=== PATIENT | male | born 1960 | race Two or more races ===

== ENCOUNTER 2024-11-02 15:17 | Inpatient (IN) | payer MEDICAID, OTHER ==
[~2024-11-02] VITALS: Ht 182.9 cm; Wt 92.8 kg
--- NOTE | 2024-11-02 15:33 | ED.PDOC ---
HPI Comments This is a 64 year old male STEPHANIEA presenting to the ED with chief complaint of generalized weakness. EMS reports that the patient had missed a week of dialysis and barely went in today to be dialyzed. EMS relays that the patient had dialysis for about an hour before starting to experience symptoms of generalized weakness, prompting staff to call 911. EMS states patient had a BP on scene of 230/94. Patient notes that he is supposed to go to dialysis M//, but is only going Tuesday and Tuesday. Patient reports that he has also been experiencing some associated diarrhea. Patient denies any dizziness, chest pain, SOB, N/V, abdominal pain, or headache. Chief Complaint: High Blood Pressure Time Seen by MD: 15:30 Reviewed Notes: Nurses Notes, Arcade Game Technician Notes, Medications, Allergies Allergies: Coded Allergies: Gabapentin (Verified Allergy, Unknown, 11/02/24) Information Source: Patient, Emergency Med Personnel Mode of Arrival: EMS Severity: Moderate Timing: Hours Duration: Since onset Prehospital treatment: None Cardiac Risk Factors: HTN, Diabetes Past Medical History PAST MEDICAL HISTORY: CVA, DM, ESRD, HTN Surgical History: Denies all surgeries Family History Family History: Reviewed,noncontributory to illness Social History Smoker: Non-Smoker Alcohol: Denies ETOH Use Drugs: Denies Drug Use Lives In: Home Constitutional: reports: fatigue, weakness; denies: chills, diaphoresis, fever, malaise, sweats, others EENTM: denies: blurred vision, double vision, ear bleeding, ear discharge, ear drainage, ear pain, ear ringing, eye pain, eye redness, hearing loss, mouth pain, mouth swelling, nasal discharge, nose bleeding, nose congestion, nose pain, photophobia, tearing, throat pain, throat swelling, voice changes, others Respiratory: denies: cough, hemoptysis, orthopnea, SOB at rest, shortness of breath, SOB with excertion, stridor, wheezing, others Cardiovascular: denies: chest pain, dizzy spells, diaphoresis, Dyspnea on exertion, edema, irregular heart beat, left arm pain, lightheadedness, palpitations, PND, syncope, others Gastrointestinal: reports: diarrhea; denies: abdomen distended, abdominal pain, blood streaked bowels, constipated, dysphagia, difficulty swallowing, hematemesis, melena, nausea, poor appetite, poor fluid intake, rectal bleeding, rectal pain, vomiting, others Genitourinary: denies: burning, dysuria, flank pain, frequency, hematuria, incontinence, penile discharge, penile sore, pain, testicle pain, testicle swelling, urgency, others Neurological: denies: dizziness, fainting, headache, left sided numbness, left sided weakness, numbness, paresthesia, pre-existing deficit, right sided nu mbness, right sided weakness, seizure, speech problems, tingling, tremors, weakness, others Musculoskeletal: denies: back pain, gout, joint pain, joint swelling, muscle pain, muscle stiffness, neck pain, others Integumetry: denies: bruises, change in color, change in hair/nails, dryness, laceration, lesions, lumps, rash, wounds, others Allergic/Immunocompromised: denies: Difficulty Healing, Frequent Infections, Hives, Itching, others Hematologic/Lymphatic: denies: anemia, blood clots, easy bleeding, easy bruising, swollen glands, others Endocrine: denies: excessive hunger, excessive sweating, excessive thirst, excessive urination, flushing, intolerance to cold, intolerance to heat, unexplained weight gain, unexplained weight loss, others Psychiatric: denies: anxiety, bipolar disorder, depression, hopeless, panic disorder, schizophrenia, sleepless, suicidal, others All Other Systems: Reviewed and Negative Physical Exam General Appearance: Moderate Distress, Normal HEENT: Normal ENT Inspection, Pharynx Normal, TMs Normal Neck: Full Range of Motion, Non-Tender, Normal, Normal Inspection Respiratory: Chest Non-Tender, Lungs Clear, No Accessory Muscle Use, No Respiratory Distress, Normal Breath Sounds Cardiovascular: Bradycardia, No Edema, No JVD, No Murmur, No Gallop, Normal Peripheral Pulses Breast Exam: Deferred Gastrointestinal: No Organomegaly, Non Tender, No Pulsatile Mass, Normal Bowel Sounds, Soft Genitalia: Deferred Pelvic: Deferred Rectal: Deferred Extremities: No calf tenderness, Normal capillary refill, Normal inspection, Normal range of motion, Non-tender, No pedal edema Musculoskeletal : Apperance: Normal Neurologic: Alert, finisher fine diamond dies II-XII nml as Tested, No Motor Deficits, Normal Affect, Normal Mood, No Sensory Deficits Cerebellar Function: NOT DONE Reflexes: NOT DONE Skin: Dry, Normal Color, Warm Peripheral Pulses: 3+ Radial (R), 3+ Radial (L) Lymphatic: No Adenopathy EKG EKG : Pulse Rate (adult): 43 [place]: Normal Cardiac Rhythm: SB Was a procedure done? Was a procedure done?: No CP Differential Dx Differential Diagnosis: A-fib, A-Flutter, Angina, Anxiety / Panic Attack, Atrial Dysrhythmia, Electrolyte Disorder X-Ray, Labs, Meds, VS Vital Signs Date Time Temp Pulse Resp B/P (MAP) Pulse Ox O2 Delivery O2 Flow Rate FiO2 11/02/24 16:31 97 Room Air* 0 21 11/02/24 16:23 47 16 97 Room Air* 0 21 11/02/24 16:21 98.3 48 16 155/56 (89) 97 98.3 11/02/24 15:50 197/73 11/02/24 15:33 43 11/02/24 15:23 98.3 43 16 227/88 98 98.3 11/02/24 15:22 43 Lab Test 11/02/24 16:35 11/02/24 15:38 Range/Units Troponin I High Sensitivity 53 57 *H </=54 ng/L White Blood Count 9.8 4.4-10.8 10^3/uL Red Blood Count 3.69 L 4.5-5.90 10^6/uL Hemoglobin 12.2 L 13.5-17.5 g/dL Hematocrit 36.4 L 41.0-53.0 % Mean Corpuscular Volume 98.7 80.0-100.0 fL Mean Corpuscular Hemoglobin 33.1 H 28.0-32.0 pg Mean Corpuscular Hemoglobin Concent 33.5 32.0-36.0 g/dL Red Cell Distribution Width 15.1 H 11.8-14.3 % Platelet Count 150 140-450 10^3/uL Mean Platelet Volume 11.5 H 6.9-10.8 fL Neutrophils (%) (Auto) 69.0 37.0-80.0 % Lymphocytes (%) (Auto) 21.5 10.0-50.0 % Monocytes (%) (Auto) 8.2 0.0-12.0 % Eosinophils (%) (Auto) 0.8 0.0-7.0 % Basophils (%) (Auto) 0.5 0.0-2.0 % Neutrophils # (Auto) 6.8 1.6-8.6 10 ^3/uL Lymphocytes # (Auto) 2.1 0.4-5.4 10 ^3/uL Monocytes # (Auto) 0.8 0-1.3 10 ^3/uL Eosinophils # (Auto) 0.1 0-0.8 10 ^3/uL Basophils # (Auto) 0 0-0.2 10 ^3/uL Nucleated Red Blood Cells 0.1 % Sodium Level 139 136-145 mmol/L Potassium Level 5.1 3.5-5.1 mmol/L Chloride Level 105 98-107 mmol/L Carbon Dioxide Level 21 20-31 mmol/L Anion Gap 13 5-15 Blood Urea Nitrogen 88 *H 9-23 mg/dL Creatinine 7.43 H 0.700-1.30 mg/dL Glomerular Filtration Rate Calc 8 >90 mL/min BUN/Creatinine Ratio 11.8 10.0-20.0 Serum Glucose 204 H 74-106 mg/dL Calcium Level 7.5 L 8.7-10.4 mg/dL Total Bilirubin 0.5 0.2-1.0 mg/dL Aspartate Amino Transferase (AST) 28 13-40 U/L Alanine Aminotransferase (ALT) 35 7-40 U/L Alkaline Phosphatase 94 46-116 U/L Total Protein 6.2 5.7-8.2 g/dL Albumin 3.5 3.2-4.8 g/dL Current Medications Medications (Trade) Dose Ordered Sig/Katarzyna Route Start Time Stop Time Status Last Admin Calcium Gluconate/ Sodium Chloride 50 ml @ 120 mls/hr ONCE ONCE IV 11/02/24 15:30 11/02/24 15:54 DC 11/02/24 15:50 Hydralazine HCl (Apresoline Injection) 10 mg ONCE ONCE IV 11/02/24 15:45 11/02/24 15:46 DC 11/02/24 15:50 Piperacillin Sod/ Tazobactam Sod 100 ml @ 100 mls/hr ONCE ONCE IV 11/02/24 16:45 11/02/24 17:44 DC 11/02/24 16:49 Azithromycin 250 ml @ 125 mls/hr ONCE ONCE IV 11/02/24 16:45 11/02/24 18:44 11/02/24 16:49 [facility] [id number] [place] [id number] Ph: [phone] DIAGNOSTIC IMAGING Diagnostic Imaging Report : [id number] Signed PATIENT: LUIS FELIPE MYRICK ACCT: [id number] UNIT: [id number] : 1960 LOC: ER ROOM / BED: / AGE / SEX: 64 / M ADM STATUS: REG ER SERVICE 1529 ORDERING PHYSICIAN: MERI PETTY MD PROCEDURE(s): CXRP - CHEST PORTABLE REASON: sob ORDER NUMBER(s): [id number], ACCESSION NUMBER(s): [id number] CHEST RADIOGRAPH Indication: sob Technique: XY CHEST PORTABLE COMPARISON: None FINDINGS: Right IJ catheter tip projects over the SVC. The cardiac silhouette is enlarged. The lungs demonstrate bilateral patchy airspace opacities. The pulmonary vasculature is prominent. Small bilateral pleural effusions. There is no pneumothorax. IMPRESSION: Cardiomegaly with pulmonary vascular congestion and bilateral patchy airspace opacities. Small bilateral pleural effusions. ATED BY: MAIK HERNANDEZ MD DICTATED DATE/TIME: 11/02/24 1602 SIGNED BY: MAIK HERNANDEZ MD SIGNED DATE/TIME: 11/02/24 1602 CC: Patient alert. Feeling weak. Has not had dialysis for a week. He is perspiring. He did go to dialysis center today for which they did dialyzed 500 mL. EKG does show prolonged QT interval. Chest x-ray reviewed does show congestion with possible pneumonia. Establish intravenous access. Was given Zosyn. Was given azithromycin. Blood pressure elevated. Was given hydralazine. Explained to the patient. Continue monitoring. Time of 1ST Reevaluation: 16:29 Reevaluation 1ST: Unchanged Patient Education/Counseling: Diagnosis, Treatment Family Education/Counseling: No Family Present SEPSIS Sepsis Screen Physician Orders Chest Portable (11/02/24 15:29) Urinalysis (11/02/24 15:29) Troponin-I Hs (11/02/24 18:29) Electrocardigram (11/02/24 15:33) * Cardiology Consult (11/02/24 16:36) Azithromycin 500mg/ 250ml (Zithromax 50 (11/02/24 16:45) Vital Signs Date Time Temp Pulse Resp B/P (MAP) Pulse Ox O2 Delivery O2 Flow Rate FiO2 11/02/24 16:31 97 Room Air* 0 21 11/02/24 16:23 47 16 97 Room Air* 0 21 11/02/24 16:21 98.3 48 16 155/56 (89) 97 98.3 11/02/24 15:50 197/73 11/02/24 15:33 43 11/02/24 15:23 98.3 43 16 227/88 98 98.3 11/02/24 15:22 43 Laboratory Tests Test 11/02/24 15:38 White Blood Count 9.8 10^3/uL (4.4-10.8) Medications Medications Dose Ordered Sig/Katarzyna Route Start Time Stop Time Status Last Admin Dose Admin Azithromycin 250 ml @ 125 mls/hr ONCE ONCE IV 11/02/24 16:45 11/02/24 18:44 11/02/24 16:49 Calcium Gluconate/ Sodium Chloride 50 ml @ 120 mls/hr ONCE ONCE IV 11/02/24 15:30 11/02/24 15:54 DC 11/02/24 15:50 Hydralazine HCl 10 mg ONCE ONCE IV 11/02/24 15:45 11/02/24 15:46 DC 11/02/24 15:50 Piperacillin Sod/ Tazobactam Sod 100 ml @ 100 mls/hr ONCE ONCE IV 11/02/24 16:45 11/02/24 17:44 DC 11/02/24 16:49 Departure 1 Departure Time of Disposition: 15:40 Impression: Primary Impression: Hypertensive emergency Additional Impressions: Chronic kidney disease on chronic dialysis Pneumonia Qualified Codes: J18.9 - Pneumonia, unspecified organism Disposition: 09 ADMITTED INPATIENT Admit to: Med Surg Condition: Guarded Critical Care Note Critical Care Time?: Yes (90 min-critical care time only) Stability Stability form required: No Heart Score Heart Score: Heart Score Response (Comments) Value History Highly Suspicious 2 EKG Repolarization Disturb 1 Age 45-64 1 Risk Factors >3 or Hx ASHD 2 Troponin Normal limit 0 Total 6 I personally scribed for MERI PETTY MD ([email or web address]) on 11/02/24 at 15:33. Electronically submitted by Geronimo Shearer ([email or web address]). I personally scribed for MERI PETTY MD ([email or web address]) on 11/02/24 at 16:07. Electronically submitted by Geronimo Shearer ([email or web address]). MERI PETTY MD Nov 02, 2024 15:33
[2024-11-02] MEDS: hydrALAZINE HCL 20 MG/ML VL IV ONE (15:50)
[2024-11-02] MEDS: CALCIUM GLUC 1,000mg/50ml-NS 50 ML IV ONE (15:50)
[2024-11-02 16:01] LABS: Hematocrit 36.4 % (41.0-53.0); Hemoglobin 12.2 g/dL (13.5-17.5); Mean Corpuscular Hemoglobin 33.1 pg (28.0-32.0); Mean Corpuscular Volume 98.7 fL (80.0-100.0); Nucleated Red Blood Cells % 0.1 %
--- NOTE | 2024-11-02 16:02 | DVH ---
CHEST RADIOGRAPH Indication: sob Technique: XY CHEST PORTABLE COMPARISON: None FINDINGS: Right IJ catheter tip projects over the SVC. The cardiac silhouette is enlarged. The lungs demonstrate bilateral patchy airspace opacities. The pu lmonary vasculature is prominent. Small bilateral pleural effusions. There is no pneumothorax. IMPRESSION: Cardiomegaly with pulmonary vascular congestion and bilateral patchy airspace opacities. Small bilateral pleural effusions.
[2024-11-02 16:16] LABS: Alanine Aminotransferase 35 U/L (7-40); Albumin 3.5 g/dL (3.2-4.8); Alkaline Phosphatase 94 U/L (46-116); Anion Gap 13 (5-15); BUN/Creatinine Ratio 11.8 (10.0-20.0); Bilirubin, Total 0.5 mg/dL (0.2-1.0); Calcium 7.5 mg/dL (8.7-10.4); Carbon Dioxide 21 mmol/L (20-31); Chloride 105 mmol/L (98-107); Glucose 204 mg/dL (74-106); Potassium 5.1 mmol/L (3.5-5.1); Sodium 139 mmol/L (136-145); Total Protein 6.2 g/dL (5.7-8.2)
[2024-11-02 16:17] LABS: Blood Urea Nitrogen 88 mg/dL (9-23)
[2024-11-02 16:23] VITALS: PULSE 47; RESP 16; O2SAT 97
[2024-11-02] MEDS: AZITHROMYCIN 500MG/ 250ML 250 ML IV ONE (16:49)
[2024-11-02] MEDS: PIPERACILLIN-TAZOB 3.375GM 100 ML IV ONE (16:49)
--- NOTE | 2024-11-02 16:57 | DVHHP2 ---
Admitting Diagnosis: Generalized weakness History of Present Illness This is a 64 year old male ELIZABETH presenting to the ED with chief complaint of generalized weakness. EMS reports that the patient had missed a week of dialysis and barely went in today to be dialyzed. EMS relays that the patient had dialysis for about an hour before starting to experience symptoms of generalized weakness, prompting staff to call 911. EMS states patient had a BP on scene of 230/94. Patient notes that he is supposed to go to dialysis M//, but is only going Tuesday and Tuesday. Patient reports that he has also been experiencing some associated diarrhea. Patient denies any dizziness, chest pain, SOB, N/V, abdominal pain, or headache. PAST MEDICAL HISTORY: CVA, DM, ESRD, HTN Surgical History: Denies all surgeries Family History Family History: Reviewed,noncontributory to illness Social History Smoker: Non-Smoker Alcohol: Denies ETOH Use Drugs: Denies Drug Use Lives In: Home Allergies: Coded Allergies: Gabapentin (Verified Allergy, Unknown, 11/02/24) Vital Signs Vital Signs Date Time Temp Pulse Resp B/P (MAP) Pulse Ox O2 Delivery O2 Flow Rate FiO2 11/02/24 18:00 44 16 162/74 (103) 97 11/02/24 16:31 Room Air* 0 21 11/02/24 16:21 98.3 98.3 Physical Exam Generally-64 years old male, well nourished well developed. Lying in bed no apparent distress HEENT-atraumatic normocephalic Heart-regular rate and rhythm Lungs decreased breath sounds bilaterally . Dialysis catheter in the right upper chest Abdomen soft nontender nondistended Musculoskeletal-pedal edema Neuro-AO x3, no focal deficits SEPSIS Sepsis Screen Date sepsis recognized/suspect: Nov 02, 2024 Time Sepsis recognized/suspect: 1630 Recent Procedure: No On Antibiotic Therapy: No Respiratory Rate >20: No Heart Rate >90: No Temp<36 C (96.8 F) or >38.3 C: No SBP <90 or MAP <65 mmHG: No New Acute Mental Status Change: No Is the patient on CPAP, BIPAP,: No Physician Orders Chest Portable (11/02/24 15:29) Urinalysis (11/02/24 15:29) Troponin-I Hs (11/02/24 18:29) Electrocardigram (11/02/24 15:33) * Cardiology Consult (11/02/24 16:36) Stool Bacterial Culture (11/02/24 18:28) Stool Wbc (11/02/24 18:28) Ph Stool (11/02/24 18:28) Stool Occult Blood (11/02/24 18:28) *[facility] (11/02/24 19:02) Echo 2d Mode Cardiac Dop (11/02/24 19:03) Pharmacy To Reconcile Home Med (11/02/24 19:03) Hydralazine Injection (Apresoline Inject (11/02/24 19:15) Cardiac Diet-2gna,Lofat,Lochol (11/03/24 Breakfast) Heparin Sodium (Porcine) (11/02/24 22:00) Vital Signs Date Time Temp Pulse Resp B/P (MAP) Pulse Ox O2 Delivery O2 Flow Rate FiO2 11/02/24 18:00 44 16 162/74 (103) 97 11/02/24 16:31 97 Room Air* 0 21 11/02/24 16:23 47 16 97 Room Air* 0 21 11/02/24 16:21 98.3 48 16 155/56 (89) 97 98.3 11/02/24 15:50 197/73 11/02/24 15:33 43 11/02/24 15:23 98.3 43 16 227/88 98 98.3 11/02/24 15:22 43 Laboratory Tests Test 11/02/24 15:38 White Blood Count 9.8 10^3/uL (4.4-10.8) Medications Medications Dose Ordered Sig/Katarzyna Route Start Time Stop Time Status Last Admin Dose Admin Azithromycin 250 ml @ 125 mls/hr ONCE ONCE IV 11/02/24 16:45 11/02/24 18:44 DC 11/02/24 16:49 Calcium Gluconate/ Sodium Chloride 50 ml @ 120 mls/hr ONCE ONCE IV 11/02/24 15:30 11/02/24 15:54 DC 11/02/24 15:50 Hydralazine HCl 10 mg ONCE ONCE IV 11/02/24 15:45 11/02/24 15:46 DC 11/02/24 15:50 Piperacillin Sod/ Tazobactam Sod 100 ml @ 100 mls/hr ONCE ONCE IV 11/02/24 16:45 11/02/24 17:44 DC 11/02/24 16:49 Results Labs Test 11/02/24 18:28 11/02/24 15:38 Range/Units White Blood Count 9.8 4.4-10.8 10^3/uL Red Blood Count 3.69 L 4.5-5.90 10^6/uL Hemoglobin 12.2 L 13.5-17.5 g/dL Hematocrit 36.4 L 41.0-53.0 % Mean Corpuscular Volume 98.7 80.0-100.0 fL Mean Corpuscular Hemoglobin 33.1 H 28.0-32.0 pg Mean Corpuscular Hemoglobin Concent 33.5 32.0-36.0 g/dL Red Cell Distribution Width 15.1 H 11.8-14.3 % Platelet Count 150 140-450 10^3/uL Mean Platelet Volume 11.5 H 6.9-10.8 fL Neutrophils (%) (Auto) 69.0 37.0-80.0 % Lymphocytes (%) (Auto) 21.5 10.0-50.0 % Monocytes (%) (Auto) 8.2 0.0-12.0 % Eosinophils (%) (Auto) 0.8 0.0-7.0 % Basophils (%) (Auto) 0.5 0.0-2.0 % Neutrophils # (Auto) 6.8 1.6-8.6 10 ^3/uL Lymphocytes # (Auto) 2.1 0.4-5.4 10 ^3/uL Monocytes # (Auto) 0.8 0-1.3 10 ^3/uL Eosinophils # (Auto) 0.1 0-0.8 10 ^3/uL Basophils # (Auto) 0 0-0.2 10 ^3/uL Nucleated Red Blood Cells 0.1 % Sodium Level 139 136-145 mmol/L Potassium Level 5.1 3.5-5.1 mmol/L Chloride Level 105 98-107 mmol/L Carbon Dioxide Level 21 20-31 mmol/L Anion Gap 13 5-15 Blood Urea Nitrogen 88 *H 9-23 mg/dL Creatinine 7.43 H 0.700-1.30 mg/dL Glomerular Filtration Rate Calc 8 >90 mL/min BUN/Creatinine Ratio 11.8 10.0-20.0 Serum Glucose 204 H 74-106 mg/dL Calcium Level 7.5 L 8.7-10.4 mg/dL Total Bilirubin 0.5 0.2-1.0 mg/dL Aspartate Amino Transferase (AST) 28 13-40 U/L Alanine Aminotransferase (ALT) 35 7-40 U/L Alkaline Phosphatase 94 46-116 U/L Total Protein 6.2 5.7-8.2 g/dL Albumin 3.5 3.2-4.8 g/dL Primary Diagnosis Elevated troponin rule out ACS Generalized weakness Hypertensive urgency Plan Patient has hemodialysis Tuesday and Tuesday. Anwar hemodialysis removed about 500 cc fluids Nephrology consult to assess for hemodialysis Elevated troponin likely due to demand rule out ACS check echo Cardiology consult Pharmacy for medication reconciliation Cardiac diet Full code Heparin for DVT prophylaxis No GI prophylaxis needed Plan discussed with: Patient Problems List: (1) Elevated troponin (2) Chronic kidney disease on chronic dialysis Status: Acute (3) Hypertensive emergency Status: Acute Date of Service: Nov 02, 2024 Billing Provider: LORNA FITZPATRICK MD Common Visit Codes: [id number] INP/OBS CARE (HIGH) LORNA FITZPATRICK MD Nov 02, 2024 16:57
[2024-11-02] MEDS ORDERED: ACETAMINOPHEN 325 MG TAB PO PRN (19:15)
[2024-11-02] MEDS ORDERED: DEXTROSE (50%) 50ML SYRG IV PRN (19:15)
[2024-11-02] MEDS ORDERED: DOCUSATE SOD 100 MG CAP PO PRN (19:15)
[2024-11-02] MEDS ORDERED: ONDANSETRON HCL 4 MG/2 ML VIAL IV PRN (19:15)
[2024-11-02] MEDS: hydrALAZINE HCL 20 MG/ML VL IV PRN (19:50)
[2024-11-02] MEDS: SODIUM CHLOR 0.9% PF (SALINE LOCK) 10ML VIAL/SYR IV SCH (21:31)
[2024-11-02] MEDS: ACCU-CHEK COMFORT CURVE STRIP VI SCH (22:46)
[2024-11-02] MEDS: InsuLIN REG 1unit/0.01ml Soln (100units/ml) SC SCH (23:14)
[2024-11-02] MEDS: HEPARIN SODIUM (PORCINE) 5000 UNITS/ML 1ML VIAL SC SCH (23:16)
--- NOTE | 2024-11-02 23:23 | ECG ---
[facility] Test Date: 2024-11-02 Test Time: 15:20:45 Pat Name: LUIS FELIPE MYRICK Department: Room: 0219T Gender: M Corporate Coordinator: ALEJANDRA : 1960 Requested By: MERI PETTY Order Number: [id number] Reading MD: Forest Saldivar Measurements Intervals [place] Rate: 43 P: 4 RI: 198 QRS: -26 QRSD: 118 T: 33 QT: 584 QTc: 494 Interpretive Statements Sinus bradycardia LVH with IVCD and secondary repol abnrm Borderline prolonged QT interval Electronically Signed On 11-03-2024 16:44:27 PDT by Forest Saldivar Please click the below link to view image of tracing.
[2024-11-03] VITALS (11 sets, daily range): BP systolic 131–201; BP diastolic 54–75; PULSE 44–48; RESP 12–19; TEMP 97.5–98.3; O2SAT 91–94
[2024-11-03] MEDS: HYDROcodone-ACET 5/325MG TAB PO PRN (01:25)
--- NOTE | 2024-11-03 14:43 | DVHINCON2 ---
Date Seen: Nov 03, 2024 Referring Physician Jacinto Reason for Consultation Bradycardia, Elevated Troponin History of Present Illness 64-year-old male with PMH for HTN, ESRD on HD, diabetes, dyslipidemia, peripheral neuropathy, CVA, amphetamine abuse presents to the hospital with generalized weakness. Patient states he was at dialysis when he felt fairly weak and they noticed his heart rate was on the lower side prompting staff to call 911. Upon evaluation patient found to have initial blood pressure on scene of 230/94. Patient had mildly elevated troponins trending 57, 53, 65. CXR showed cardiomegaly with pulmonary vascular congestion and bilateral patchy airspace opacities and small bilateral pleural effusions. EKG reviewed and showed sinus bradycardia 43 beats per minute, LVH, IVCD. QTC prolonged at 545 milliseconds Past Medical History As stated above Past Surgical History Denies previous past cardiac surgeries Family History: Patient reports no known family medical history. Social History Denies recent use of alcohol, tobacco, or illicit drug use Allergies: Coded Allergies: Gabapentin (Verified Allergy, Unknown, 11/02/24) Current Medications Current Medications Medications (Trade) Dose Ordered Sig/Katarzyna Route PRN Reason Start Time Stop Time Status Last Admin Hydralazine HCl (Apresoline Injection) 10 mg Q6HP PRN IV SBP>150 11/02/24 19:15 11/03/24 09:11 DC 11/03/24 03:26 Heparin Sodium (Porcine) 5,000 units Q12HR SC 11/02/24 22:00 11/03/24 09:40 Sodium Chloride (Saline Lock Ns) 10 ml Q8HR IV 11/02/24 22:00 11/03/24 05:35 Docusate Sodium (Colace Capsule) 100 mg BIDPRN PRN PO FOR CONSTIPATION 11/02/24 19:15 11/03/24 09:11 DC Acetaminophen (Tylenol Tablet) 650 mg Q6HP PRN PO PAIN SCALE 1-3 OR TEMP>100.4 11/02/24 19:15 Acetaminophen/ Hydrocodone Bitart ([place] 5/325MG Tab) 1 tab Q4HP PRN PO MODERATE PAIN (4-6 PAIN SCALE) 11/02/24 19:15 11/03/24 01:25 Ondansetron HCl (Zofran) 4 mg Q4HP PRN IV NAUSEA / VOMITING 11/02/24 19:15 11/03/24 09:11 DC Diagnostic Test (Pha) (Accu-Chek Comfort Curve T) 1 strip ACHS 11/02/24 22:00 11/03/24 11:30 Insulin Human Regular (InsuLIN R) ACHS SC 11/02/24 22:00 11/03/24 12:36 Dextrose 50 ml UD PRN IV Blood Sugar LESS THAN 60 11/02/24 19:15 Review of Systems Constitutional: No: Fever, Chills, Sweats, Weakness, Malaise, Other Eyes: No: Pain, Vision change, Conjunctivae inflammation, Eyelid inflammation, Other, Redness ENT: No: Ear pain, Ear discharge, Nose pain, Nose discharge, Nose congestion, Mouth pain, Mouth swelling, Throat pain, Throat swelling, Other Respiratory: No: Cough, Dry, Shortness of breath, SOB with exertion, Wheezing, Hemoptysis, Pleuritic Pain, Sputum, Wheezing, Other Cardiovascular: ; No: Chest Pain Palpitations, Orthopnea, Paroxysmal Noc. Dyspnea, Edema, Lt Headedness, Other Gastrointestinal: No: Nausea, Vomiting, Abdominal Pain, Diarrhea, Constipation, Melena, Hematochezia, Other Genitourinary: No Dysuria, No Frequency, No Incontinence, No Hematuria, No Retention, No Other Musculoskeletal: neck pain; No: other, shoulder pain, arm pain, back pain, hand pain, leg pain, foot pain Skin: No: Rash, Lesions, Jaundice, Bruising, Other Neurological: Other (Dizziness, headache.); No: Weakness, Numbness, Incoordination, Change in speech, Confusion, Seizures Vital Signs Vital Signs Date Time Temp Pulse Resp B/P (MAP) Pulse Ox O2 Delivery O2 Flow Rate FiO2 11/03/24 09:00 97.9 45 19 155/63 (93) 91 97.9 11/03/24 08:18 Room Air* 0 21 Physical Exam General appearance: Patient is well-developed, well-nourished, in no acute distress. HEENT: Exam shows: Normocephalic, atraumatic, PERRLA, EOMI Neck: Supple, no bruits Chest: Equal chest excursion bilaterally. Breath sounds normal-no rales or wheezes. Heart: Rhythm: Regular rate; no murmur or gallop Abdomen: Exam shows: Soft, nontender, nondistended Musculoskeletal: No clubbing, no cyanosis, no lower extremity edema Dermatology: Skin warm, moist. Neurological: Exam shows: Alert and oriented x4, normal speech Available prior records, labs, EKG, rhythm strips reviewed and interpreted Labs/Diagnostic Data Labs Test 11/03/24 11:50 11/03/24 10:26 11/02/24 18:40 11/02/24 18:28 Range/Units POC Glucose 160 H 70-106 mg/dl Thyroid Stimulating Hormone (TSH) 1.60 0.55-4.78 uIU/mL Stool Occult Blood Negative Negative Stool Occult Blood Sample #3 Negative Stool for White Cells None seen Troponin I High Sensitivity 65 *H </=54 ng/L Test 11/02/24 15:38 Range/Units White Blood Count 9.8 4.4-10.8 10^3/uL Red Blood Count 3.69 L 4.5-5.90 10^6/uL Hemoglobin 12.2 L 13.5-17.5 g/dL Hematocrit 36.4 L 41.0-53.0 % Mean Corpuscular Volume 98.7 80.0-100.0 fL Mean Corpuscular Hemoglobin 33.1 H 28.0-32.0 pg Mean Corpuscular Hemoglobin Concent 33.5 32.0-36.0 g/dL Red Cell Distribution Width 15.1 H 11.8-14.3 % Platelet Count 150 140-450 10^3/uL Mean Platelet Volume 11.5 H 6.9-10.8 fL Neutrophils (%) (Auto) 69.0 37.0-80.0 % Lymphocytes (%) (Auto) 21.5 10.0-50.0 % Monocytes (%) (Auto) 8.2 0.0-12.0 % Eosinophils (%) (Auto) 0.8 0.0-7.0 % Basophils (%) (Auto) 0.5 0.0-2.0 % Neutrophils # (Auto) 6.8 1.6-8.6 10 ^3/uL Lymphocytes # (Auto) 2.1 0.4-5.4 10 ^3/uL Monocytes # (Auto) 0.8 0-1.3 10 ^3/uL Eosinophils # (Auto) 0.1 0-0.8 10 ^3/uL Basophils # (Auto) 0 0-0.2 10 ^3/uL Nucleated Red Blood Cells 0.1 % Sodium Level 139 136-145 mmol/L Potassium Level 5.1 3.5-5.1 mmol/L Chloride Level 105 98-107 mmol/L Carbon Dioxide Level 21 20-31 mmol/L Anion Gap 13 5-15 Blood Urea Nitrogen 88 *H 9-23 mg/dL Creatinine 7.43 H 0.700-1.30 mg/dL Glomerular Filtration Rate Calc 8 >90 mL/min BUN/Creatinine Ratio 11.8 10.0-20.0 Serum Glucose 204 H 74-106 mg/dL Calcium Level 7.5 L 8.7-10.4 mg/dL Total Bilirubin 0.5 0.2-1.0 mg/dL Aspartate Amino Transferase (AST) 28 13-40 U/L Alanine Aminotransferase (ALT) 35 7-40 U/L Alkaline Phosphatase 94 46-116 U/L Total Protein 6.2 5.7-8.2 g/dL Albumin 3.5 3.2-4.8 g/dL Microbiology Date/Time Source Procedure Growth Status 11/02/24 18:40 Stool Stool Culture - Preliminary Resulted 11/02/24 18:40 Stool Shiga Toxin I & II Pending Resulted Assessment * Mildly elevated troponins - troponins stable. EKG negative for acute ischemic changes. Likely demand ischemia in setting of CHF. Denies chest pain. Continue aspirin and statin. Check echo. * Acute on chronic HFpEF - volume control with HD per Nephrology. Check echo. * Hypertensive emergency, uncontrolled HTN - BP better control. Continue p.r.n.. Added amlodipine 5 mg p.o. daily, titrate as tolerated. Avoid AV khushbu blockers due to bradycardia * Sinus bradycardia -hold AV khushbu blockers. Patient was on metoprolol. Continue telemetry monitoring. TSH normal. No AV khushbu block/pauses noted. * Prolonged QTC- avoid QT prolonging agents. Monitor electrolytes * ESRD on HD - management per Nephrology. Case Discussed with Dr Saldivar. Continue telemetry monitoring. Follow up echo. If no significant abnormalities on echo consider outpatient ischemic workup. Continue bundle control with HD until euvolemic. Critical care, time spent: 45 minutes This medical document was created using an electronic medical record system with voice recognition software and computerized dictation system. Although this document has been carefully reviewed, there might still be some phonetic and typographical errors. Occasional wrong-word or ``sound-alike substitutions may have occurred due to the inherent limitations of voice recognition software. These areas are purely typographical due to imperfections of the software programs and do not reflect any compromise in the patient's medical care. Please read the chart carefully and recognize, using context, where these substitutions have occurred. Thank you for allowing me to participate in the management of this patient. The treatment plan was discussed with and agreed upon by patient/family including requesting consultants and ordering of imaging/procedures. Plan discussed with: Patient NYHA Physical activity limitations: Class3(Marked) ordinary Date of Service: Nov 03, 2024 Billing Provider: CARMEN HENSON Cardiology Common Codes: [id number] INP/OBS CARE (High), [id number] CARE 30-74 MIN CARMEN HENSON Nov 03, 2024 14:43
--- NOTE | 2024-11-03 15:02 | DVHPN2 ---
Assessment/Plan Assessment/Plan Subjective History of Present Illness This is a 64-year-old male with end-stage renal disease (ESRD) on dialysis, [id number] diabetes, hypertension, and a remote history of CVA, p resenting with missed dialysis and hypertension. The patient reports missing his scheduled Tuesday dialysis. On Tuesday, when he arrived at his dialysis center ([facility]), his blood pressure was elevated, necessitating the termination of the dialysis session. Only 500cc of fluid was removed before the procedure was stopped, and he was subsequently sent to the Emergency Department. Despite these events, the patient remains asymptomatic and is able to speak in full sentences. He continues to produce urine, albeit in small amounts. The patient's dialysis schedule is typically Tuesday and Tuesday, with extended sessions due to the distance between his home and the dialysis center. This episode represents a deviation from his usual treatment regimen, potentially impacting his overall health status. Objective Vital Signs - Blood Pressure: 155/63 mmHg - Heart Rate: 45 bpm - Respiratory Rate: 19 breaths per minute - Oxygen Saturation: 94% on room air Physical Examination General: Alert and oriented x4. HEENT: PERRLA, Moist mucous membranes. Respiratory: Clear breath sounds. Cardiovascular: S1-S2 bradycardia. Trace bilateral lower extremity edema. Abdomen: Soft. Laboratory, Imaging, and Diagnostic Test Results - Labs: - Creatinine: 7.4 - BUN: 88 - Troponin: Initially 57, now 65 - Glucose: Slightly elevated - Hemoglobin: 12 - MCV: Normal - MCH: Normal - TSH: Normal - Chest X-ray: Pulmonary vascular congestion and bilateral small pleural effusions - EKG: Prolonged QT, LVH with secondary repolarization abnormalities Assessment & Plan Problem List - End-stage renal disease - Type 2 Diabetes Mellitus - Hypertension - Cerebrovascular accident - Bradycardia - Pulmonary vascular congestion - Bilateral pleural effusions - Prolonged QT interval - Left ventricular hypertrophy - Anemia of chronic kidney disease Plan - Initiate dialysis (renal consult requested) - DC azithromycin and Zosyn - Implement insulin sliding scale - Add amlodipine 10 mg for blood pressure control - Avoid IV antihypertensive agents Diet: renal diet DVT PPX: Lovenox GI PPX: Not indicated. Code Status: Full Code. Plan discussed with: Patient My Orders Orders - KAMILA BAILEY MD Procedure Category Date Status Time Amlodipine Tablet PHA 11/03/24 Logged (Norvasc Tablet) 15:00 Basic Metabolic Panel LAB 11/04/24 Verified 04:00 Complete Blood Count LAB 11/04/24 Verified 04:00 Date of Service: Nov 03, 2024 Billing Provider: KAMILA BAILEY MD Common Visit Codes: [id number] INP/OBS CARE(HIGH) KAMILA BAILEY MD Nov 03, 2024 15:02
--- NOTE | 2024-11-03 15:58 | DVHSR ---
APPROVED REPORT EXAM: Two-dimensional and M-mode echocardiogram with Doppler and color Doppler. Blood Pressure: 155/63 mmHg INDICATION Elevated troponin Rule out ACS RISK FACTORS Height: 6'0", Weight: 215 DIMENSIONS LVDd3.9 (3.8-5.7cm)LA (2D)4.8 (1.9-4.0cm)Aortic Root3.9 (2.0-3.7cm) LVDs2.8 (2.5-4.0cm)LA (MM) (1.9-4.0cm)Aortic Cusp Exc1.2 (1.5-2.0cm) EF (%) 55.0 (55-70%)Rt. Atrium4.0 (1.9-4.0cm)Asc. Aorta cm IVSd1.6 (0.7-1.1cm)RV (D)3.9 (1.8-2.4cm) PWd1.6 (0.7-1.1cm) Mitral Valve MitralMitral Stenosis E wave1.67m/sMV Mean GR.mmHg A wave0.88m/sMV Peak GR.mmHg E/A ratio1.92D MVAcm2 DECEL [id number] 1/2 Timems Aortic Valve Aortic ValveAortic Stenosis V11.08m/Preston Mean GR.17mmHg V23.06m/Preston Peak GR.37mmHg LVOT Diameter2.5 (1.8-2.4cm)Doppler AVA1.73cm2 2D AVA2.61cm2 Pulmonic Valve V21.08m/s Tricuspid Valve TR Velocity3.33m/s [id number] Other Information Technically limited study due to body habitus. Conclusion Sinus rhythm. Biatrial enlargement. Significant concentric LVH. Aortic root enlargement. There appears to be significant sclerosis of the aortic valve with thickening and calcification of th e leaflets however there appears to be adequate excursion. The mitral and tricuspid are structurally normal. The pulmonic valve is also within normal limits. Left ventricular function is preserved at 60% with normal RV function. There is onhgyqka-cg-yipgto tricuspid regurgitation with a right ventricular systolic pressure of 60 mmHg consistent with pulmonary hypertension. There is mild mitral insufficiency. No pericardial effusion masses or vegetations.
--- NOTE | 2024-11-03 16:27 | DVHINCON2 ---
Date of service: Nov 03, 2024 Reason for Consultation esrd History of Present Illness 64 Years old male past medical history of ESRD on hemodialysis, CVA, diabetes hypertension presented with chief complaints of not feeling well, generalized weakness during dialysis,, he was found to have high blood pressure SBP greater than and low heart rate denies any other complaints states he is feeling better today Past Medical History As per HPI Past Surgical History As per HPI Allergies: Coded Allergies: Gabapentin (Verified Allergy, Unknown, 11/02/24) Current Medications Current Medications Medications (Trade) Dose Ordered Sig/Katarzyna Route PRN Reason Start Time Stop Time Status Last Admin Hydralazine HCl (Apresoline Injection) 10 mg Q6HP PRN IV SBP>150 11/02/24 19:15 11/03/24 09:11 DC 11/03/24 03:26 Heparin Sodium (Porcine) 5,000 units Q12HR SC 11/02/24 22:00 11/03/24 09:40 Sodium Chloride (Saline Lock Ns) 10 ml Q8HR IV 11/02/24 22:00 11/03/24 14:00 Docusate Sodium (Colace Capsule) 100 mg BIDPRN PRN PO FOR CONSTIPATION 11/02/24 19:15 11/03/24 09:11 DC Acetaminophen (Tylenol Tablet) 650 mg Q6HP PRN PO PAIN SCALE 1-3 OR TEMP>100.4 11/02/24 19:15 Acetaminophen/ Hydrocodone Bitart ([place] 5/325MG Tab) 1 tab Q4HP PRN PO MODERATE PAIN (4-6 PAIN SCALE) 11/02/24 19:15 11/03/24 01:25 Ondansetron HCl (Zofran) 4 mg Q4HP PRN IV NAUSEA / VOMITING 11/02/24 19:15 11/03/24 09:11 DC Diagnostic Test (Pha) (Accu-Chek Comfort Curve T) 1 strip ACHS 11/02/24 22:00 11/03/24 11:30 Insulin Human Regular (InsuLIN R) ACHS SC 11/02/24 22:00 11/03/24 12:36 Dextrose 50 ml UD PRN IV Blood Sugar LESS THAN 60 11/02/24 19:15 Aspirin 81 mg DAILY PO 11/04/24 10:00 Amlodipine Besylate (Norvasc Tablet) 5 mg DAILY PO 11/04/24 10:00 11/03/24 14:59 DC Amlodipine Besylate (Norvasc Tablet) 10 mg DAILY PO 11/03/24 15:00 11/03/24 16:21 Family History: Patient reports no known family medical history. Review of Systems As documented in HPI H&P Exam Vital Signs/I&O Vital Sign Date Time Temp Pulse Resp B/P (MAP) Pulse Ox O2 Delivery O2 Flow Rate FiO2 11/03/24 16:21 139/54 11/03/24 13:00 97.5 44 19 94 97.5 11/03/24 08:18 Room Air* 0 21 Intake and Output 11/02/24 11/03/24 19:00 07:00 Intake Total 300 ml 340 ml Balance 300 ml 340 ml Intake Oral 240 ml IV Total 300 ml 100 ml # Bowel Movements 1 Physical Exam General-not in any distress HEENT-normocephalic, vision difficulty Respiratory-fair air entry bilateral, no rhonchi, no wheeze [id number] heard, bradycardic Abdominal-soft, nontender, nondistended Musculoskeletal-no pedal edema, no calf tenderness Genitourinary-deferred Neuro-awake alert oriented x3, Psychiatric-not agitated, cooperative, Labs/Diagnostic Data Labs/Diagnostic Data Laboratory Tests Test 11/03/24 11:50 11/03/24 10:26 11/03/24 06:26 11/02/24 22:26 Range/Units POC Glucose 160 H 111 H 193 H 70-106 mg/dl Thyroid Stimulating Hormone (TSH) 1.60 0.55-4.78 uIU/mL Test 11/02/24 18:40 11/02/24 18:28 11/02/24 16:35 11/02/24 15:38 Range/Units Stool Occult Blood Negative Negative Stool Occult Blood Sample #3 Negative Stool for White Cells None seen Troponin I High Sensitivity 65 *H 53 57 *H </=54 ng/L White Blood Count 9.8 4.4-10.8 10^3/uL Red Blood Count 3.69 L 4.5-5.90 10^6/uL Hemoglobin 12.2 L 13.5-17.5 g/dL Hematocrit 36.4 L 41.0-53.0 % Mean Corpuscular Volume 98.7 80.0-100.0 fL Mean Corpuscular Hemoglobin 33.1 H 28.0-32.0 pg Mean Corpuscular Hemoglobin Concent 33.5 32.0-36.0 g/dL Red Cell Distribution Width 15.1 H 11.8-14.3 % Platelet Count 150 140-450 10^3/uL Mean Platelet Volume 11.5 H 6.9-10.8 fL Neutrophils (%) (Auto) 69.0 37.0-80.0 % Lymphocytes (%) (Auto) 21.5 10.0-50.0 % Monocytes (%) (Auto) 8.2 0.0-12.0 % Eosinophils (%) (Auto) 0.8 0.0-7.0 % Basophils (%) (Auto) 0.5 0.0-2.0 % Neutrophils # (Auto) 6.8 1.6-8.6 10 ^3/uL Lymphocytes # (Auto) 2.1 0.4-5.4 10 ^3/uL Monocytes # (Auto) 0.8 0-1.3 10 ^3/uL Eosinophils # (Auto) 0.1 0-0.8 10 ^3/uL Basophils # (Auto) 0 0-0.2 10 ^3/uL Nucleated Red Blood Cells 0.1 % Sodium Level 139 136-145 mmol/L Potassium Level 5.1 3.5-5.1 mmol/L Chloride Level 105 98-107 mmol/L Carbon Dioxide Level 21 20-31 mmol/L Anion Gap 13 5-15 Blood Urea Nitrogen 88 *H 9-23 mg/dL Creatinine 7.43 H 0.700-1.30 mg/dL Glomerular Filtration Rate Calc 8 >90 mL/min BUN/Creatinine Ratio 11.8 10.0-20.0 Serum Glucose 204 H 74-106 mg/dL Calcium Level 7.5 L 8.7-10.4 mg/dL Total Bilirubin 0.5 0.2-1.0 mg/dL Aspartate Amino Transferase (AST) 28 13-40 U/L Alanine Aminotransferase (ALT) 35 7-40 U/L Alkaline Phosphatase 94 46-116 U/L Total Protein 6.2 5.7-8.2 g/dL Albumin 3.5 3.2-4.8 g/dL Assessment ESRD on hemodialysis Hypertensive emergency Bradycardia Recommendations Dialysis arranged tomorrow Blood pressure control Cardiology consult Plan discussed with: Patient RYANN LUND MD Nov 03, 2024 16:27
[2024-11-04] VITALS (8 sets, daily range): BP systolic 136–169; BP diastolic 73–89; PULSE 44–52; RESP 19–20; TEMP 97.7–98.9; O2SAT 94–96
[2024-11-04 06:32] LABS: Hematocrit 32.9 % (41.0-53.0); Hemoglobin 11.3 g/dL (13.5-17.5); Mean Corpuscular Hemoglobin 33.4 pg (28.0-32.0); Mean Corpuscular Volume 97.3 fL (80.0-100.0); Nucleated Red Blood Cells % 0.1 %
[2024-11-04 06:55] LABS: Chloride 105 mmol/L (98-107); Potassium 4.3 mmol/L (3.5-5.1); Sodium 141 mmol/L (136-145)
[2024-11-04 06:56] LABS: Anion Gap 17 (5-15)
[2024-11-04 06:59] LABS: Calcium 8.0 mg/dL (8.7-10.4); Carbon Dioxide 19 mmol/L (20-31)
[2024-11-04] MEDS ORDERED: SODIUM CHL 0.9% 1000 ML BAG XX ONE (07:00)
[2024-11-04 07:01] LABS: BUN/Creatinine Ratio 9.5 (10.0-20.0); Glucose 85 mg/dL (74-106)
[2024-11-04 07:50] LABS: Blood Urea Nitrogen 83 mg/dL (9-23)
--- NOTE | 2024-11-04 08:31 | DVHPN2 ---
Progress Note Date Seen: Nov 04, 2024 Medical Necessity Reason Pt with a Central, PICC or Fol: No Subjective Patient reports: No new complaints Review of Systems: Deferred Objective vital signs Vital Sign Date Time Temp Pulse Resp B/P (MAP) Pulse Ox O2 Delivery O2 Flow Rate FiO2 11/04/24 05:00 98.1 44 19 162/85 (110) 94 98.1 11/03/24 20:00 Room Air* 0 21 Total Intake and Output 11/03/24 11/03/24 11/04/24 15:00 23:00 07:00 Intake Total 400 ml 480 ml Output Total 300 ml Balance 400 ml 180 ml medications Current Medications Medications Dose Ordered Sig/Katarzyna Route Start Time Stop Time Status Last Admin Dose Admin Heparin Sodium (Porcine) 5,000 units Q12HR SC 11/02/24 22:00 11/03/24 21:40 5,000 UNITS Sodium Chloride 10 ml Q8HR IV 11/02/24 22:00 11/04/24 06:00 10 ML Acetaminophen 650 mg Q6HP PRN PO 11/02/24 19:15 Acetaminophen/ Hydrocodone Bitart 1 tab Q4HP PRN PO 11/02/24 19:15 11/03/24 01:25 1 TAB Diagnostic Test (Pha) 1 strip ACHS 11/02/24 22:00 11/04/24 06:37 1 STRIP Insulin Human Regular ACHS SC 11/02/24 22:00 11/03/24 22:29 4 UNITS Dextrose 50 ml UD PRN IV 11/02/24 19:15 Aspirin 81 mg DAILY PO 11/04/24 10:00 Amlodipine Besylate 10 mg DAILY PO 11/03/24 15:00 11/03/24 16:21 10 MG Isosorbide Mononitrate 30 mg DAILY PO 11/04/24 10:00 Examination: GENERAL:Normal, CVS:Abnormal (Bradycardic), NEURO:Normal laboratory and microbiology Laboratory Tests 11/04/24 05:07 Test 11/04/24 05:07 Range/Units Serum Glucose 85 # 74-106 mg/dL Microbiology Date/Time Source Procedure Growth Status 11/02/24 18:40 Stool Stool Culture - Preliminary Resulted 11/02/24 18:40 Stool Shiga Toxin I & II - Final Resulted Problem List/Assessment/Plan Problem List/Assessment/Plan ESRD on hemodialysis Hypertensive emergency Bradycardia Recommendations Dialysis today Blood pressure control Cardiology consult Plan discussed with: Patient My Orders My Orders Orders - RYANN LUND MD Procedure Category Date Status Time Hemodialysis Orders ORDERS 11/04/24 Transmitted 07:00 Dialysis Nursing [facility] 11/04/24 In Process Message 07:00 Document Fluid Input [facility] 11/04/24 In Process And Outpu 07:00 RYANN LUND MD Nov 04, 2024 08:31
--- NOTE | 2024-11-04 10:29 | DVHPN2 ---
Consult Progress Note Subjective Patient reports: No new complaints Objective vital signs Vital Sign Date Time Temp Pulse Resp B/P (MAP) Pulse Ox O2 Delivery O2 Flow Rate FiO2 11/04/24 08:10 Room Air* 0 21 11/04/24 05:00 98.1 44 19 162/85 (110) 94 98.1 Total Intake and Output 11/03/24 11/03/24 11/04/24 15:00 23:00 07:00 Intake Total 400 ml 480 ml Output Total 300 ml Balance 400 ml 180 ml medications Current Medications Medications Dose Ordered Sig/Katarzyna Route Start Time Stop Time Status Last Admin Dose Admin Heparin Sodium (Porcine) 5,000 units Q12HR SC 11/02/24 22:00 11/03/24 21:40 5,000 UNITS Sodium Chloride 10 ml Q8HR IV 11/02/24 22:00 11/04/24 06:00 10 ML Acetaminophen 650 mg Q6HP PRN PO 11/02/24 19:15 Acetaminophen/ Hydrocodone Bitart 1 tab Q4HP PRN PO 11/02/24 19:15 11/03/24 01:25 1 TAB Diagnostic Test (Pha) 1 strip ACHS 11/02/24 22:00 11/04/24 06:37 1 STRIP Insulin Human Regular ACHS SC 11/02/24 22:00 11/03/24 22:29 4 UNITS Dextrose 50 ml UD PRN IV 11/02/24 19:15 Aspirin 81 mg DAILY PO 11/04/24 10:00 Amlodipine Besylate 10 mg DAILY PO 11/03/24 15:00 11/03/24 16:21 10 MG Isosorbide Mononitrate 30 mg DAILY PO 11/04/24 10:00 laboratory and microbiology Laboratory Tests 11/04/24 05:07 Test 11/04/24 05:07 Range/Units Serum Glucose 85 # 74-106 mg/dL Problem List/Assessment/Plan Problem List/Assessment/Plan * Mildly elevated troponins - troponins stable. EKG negative for acute ischemic changes. Likely demand ischemia in setting of CHF. Denies chest pain. Continue aspirin and statin. Check echo. * Acute on chronic HFpEF - volume control with HD per Nephrology. Check echo. * Hypertensive emergency, uncontrolled HTN - BP better control. Continue p.r.n.. Added amlodipine 5 mg p.o. daily, titrate as tolerated. Avoid AV khushbu blockers due to bradycardia * Sinus bradycardia -hold AV khushbu blockers. Patient was on metoprolol. Continue telemetry monitoring. TSH normal. No AV khushbu block/pauses noted. * Prolonged QTC- avoid QT prolonging agents. Monitor electrolytes * ESRD on HD - management per Nephrology. Case Discussed with Dr Saldivar. Continue telemetry monitoring. ECHO with normal EF, mod-severe TR. RVSP 60 mmHg. No further cardiac intervention indicated at this souleymane, recommend outpatient ischemic workup. HR stable. Avoid AV khushbu blockers. Continue volume control with HD until euvolemic. Critical care, time spent: 40 minutes This medical document was created using an electronic medical record system with voice recognition software and computerized dictation system. Although this document has been carefully reviewed, there might still be some phonetic and typographical errors. Occasional wrong-word or ``sound-alike substitutions may have occurred due to the inherent limitations of voice recognition software. These areas are purely typographical due to imperfections of the software programs and do not reflect any compromise in the patient's medical care. Please read the chart carefully and recognize, using context, where these substitutions have occurred. Thank you for allowing me to participate in the management of this patient. Plan discussed with: Patient Date of Service: Nov 04, 2024 Billing Provider: CARMEN HENSON Common Visit Codes: [id number] INP/OBS CARE(HIGH), [id number] CARE 30-74 MIN CARMEN HENSON Nov 04, 2024 10:29
[2024-11-04] MEDS: ISOSORBIDE MONONITRATE ER 60 MG TAB PO SCH (10:33)
[2024-11-04] MEDS ORDERED: AMLO1TAB23 PO (13:23)
[2024-11-04] MEDS ORDERED: ISOS1TAB28 PO (13:23)
--- NOTE | 2024-11-04 17:12 | DVHDS2 ---
Discharge Summary Date of Admission Nov 02, 2024 at 19:03 Date of Discharge: Nov 04, 2024 Labs/Diagnostic Data: Laboratory Results Test 11/04/24 16:27 11/04/24 05:07 11/03/24 10:26 11/02/24 18:40 POC Glucose 237 mg/dl (70-106) White Blood Count 8.6 10^3/uL (4.4-10.8) Red Blood Count 3.38 10^6/uL (4.5-5.90) Hemoglobin 11.3 g/dL (13.5-17.5) Hematocrit 32.9 % (41.0-53.0) Mean Corpuscular Volume 97.3 fL (80.0-100.0) Mean Corpuscular Hemoglobin 33.4 pg (28.0-32.0) Mean Corpuscular Hemoglobin Concent 34.3 g/dL (32.0-36.0) Red Cell Distribution Width 15.0 % (11.8-14.3) Platelet Count 141 10^3/uL (140-450) Mean Platelet Volume 11.7 fL (6.9-10.8) Neutrophils (%) (Auto) 49.9 % (37.0-80.0) Lymphocytes (%) (Auto) 34.3 % (10.0-50.0) Monocytes (%) (Auto) 9.2 % (0.0-12.0) Eosinophils (%) (Auto) 5.8 % (0.0-7.0) Basophils (%) (Auto) 0.8 % (0.0-2.0) Neutrophils # (Auto) 4.3 10 ^3/uL (1.6-8.6) Lymphocytes # (Auto) 3.0 10 ^3/uL (0.4-5.4) Monocytes # (Auto) 0.8 10 ^3/uL (0-1.3) Eosinophils # (Auto) 0.5 10 ^3/uL (0-0.8) Basophils # (Auto) 0.1 10 ^3/uL (0-0.2) Nucleated Red Blood Cells 0.1 % Sodium Level 141 mmol/L (136-145) Potassium Level 4.3 mmol/L (3.5-5.1) Chloride Level 105 mmol/L (98-107) Carbon Dioxide Level 19 mmol/L (20-31) Anion Gap 17 (5-15) Blood Urea Nitrogen 83 mg/dL (9-23) Creatinine 8.72 mg/dL (0.700-1.30) Glomerular Filtration Rate Calc 6 mL/min (>90) BUN/Creatinine Ratio 9.5 (10.0-20.0) Serum Glucose 85 mg/dL (74-106) Calcium Level 8.0 mg/dL (8.7-10.4) Thyroid Stimulating Hormone (TSH) 1.60 uIU/mL (0.55-4.78) Stool Occult Blood Negative (Negative) Stool Occult Blood Sample #3 (Negative) Stool for White Cells None seen Test 11/02/24 18:28 11/02/24 15:38 Troponin I High Sensitivity 65 ng/L (</=54) Total Bilirubin 0.5 mg/dL (0.2-1.0) Aspartate Amino Transferase (AST) 28 U/L (13-40) Alanine Aminotransferase (ALT) 35 U/L (7-40) Alkaline Phosphatase 94 U/L (46-116) Total Protein 6.2 g/dL (5.7-8.2) Albumin 3.5 g/dL (3.2-4.8) Other Laboratory Tests 11/04/24 05:07 Brief Hx & Hospital Course: A 64-year-old male with ESRD on dialysis, type 2 diabetes, hypertension, and history of CVA presented after missing Tuesday's dialysis and having Tuesday's session terminated due to hypertension. Examination revealed bradycardia (45 bpm), hypertension (155/63 mmHg), trace lower extremity edema, and pulmonary vascular congestion with bilateral pleural effusions on chest X-ray. Labs showed elevated creatinine (7.4), BUN (88), and rising troponin. Treatment included dialysis initiation, continuing azithromycin, Zosyn, and calcium gluconate, adding amlodipine 10mg for blood pressure control, and implementing insulin sliding scale. started on imdur. had HD today. stable to LA. Condition at Discharge: Good Final Diagnosis/Problems List ESRD on HD missed HD HTN urgency Discharge Disposition: Home Discharge Instruct/Medications Diet: Renal Activity: No Restrictions, As Tolerated Scheduled Amlodipine Besylate (Amlodipine Besylate), 1 TAB PO DAILY Amlodipine Besylate (Amlodipine Besylate), 1 TAB PO DAILY Isosorbide Mononitrate (Isosorbide Mononitrate Er), 1 TAB PO DAILY Isosorbide Mononitrate (Isosorbide Mononitrate Er), 1 TAB PO DAILY Discharge Statement: "Patient was advised to return to the ER or call 911 if any headaches, dizziness, shortness of breath, chest pain, abdominal pain, bleeding, fevers, or worsening of medical condition. Patient was counseled about treatment plan, medications, possible side effects, patientverbalized understanding. All questions were answered to the best of my ability. This discharge took greater then 30 minutes in planning, reviewing documentation, counseling the patient, and discussing with other team members." ASSESSMENT ASSESSMENT Assessment ESRD on HD missed HD HTN urgency Date of Service: Nov 04, 2024 Billing Provider: KAMILA BAILEY MD Common Visit Codes: 16148-MAF/OBS DISCH DAY >30min KAMILA BAILEY MD Nov 04, 2024 17:11
== END 2024-11-04 18:30 | disposition home or self-care (01) | DRG 199 ==
LOC: EDBD 15:17 → EDSEX 15:17 → ER 15:17 → OVERFLOW 19:03 → TELE-CENTR 11-03 02:39
PROVIDERS: ADMIT Internal Medicine; ATTEND Internal Medicine
DX: I16.0 Hypertensive urgency (principal); I21.A1 Myocardial infarction type 2; N18.6 End stage renal disease; D63.1 Anemia in chronic kidney disease; E83.51 Hypocalcemia; E11.22 Type 2 diabetes mellitus with diabetic chronic kidney disease; E11.42 Type 2 diabetes mellitus with diabetic polyneuropathy; I13.2 Hypertensive heart and chronic kidney disease with heart failure and with stage 5 chronic kidney disease, or end stage renal disease; E78.5 Hyperlipidemia, unspecified; R94.31 Abnormal electrocardiogram [ECG] [EKG]; Z99.2 Dependence on renal dialysis; Z88.8 Allergy status to other drugs, medicaments and biological substances; Z86.73 Personal history of transient ischemic attack (TIA), and cerebral infarction without residual deficits; Z79.899 Other long term (current) drug therapy; I50.32 Chronic diastolic (congestive) heart failure
CPT/HCPCS: 36415; 71045; 80048; 80053; 82270; 82962; 83986; 84443; 84484; 85025; 85048; 87045; 87340; 87427; 90935; 93005; 93306; 96365; 96366; 96368; 96375; 99291; 99292; G0378; J1815; J2543